=== PATIENT | male | born 1965 | race African-American/Black ===

== ENCOUNTER 2016-12-20 22:41 | Emergency (ER) ==
[2016-12-20] MEDS ORDERED: BENADRYL IV ONE (23:56)
[2016-12-20] MEDS ORDERED: SOLU-MEDROL IV ONE (23:56)
[2016-12-20] MEDS ORDERED: SODIUM CHLORIDE 0.9% INJ ONE (23:56)
[2016-12-20] MEDS ORDERED: PEPCID IV ONE (23:56)
--- NOTE | 2016-12-21 00:05 | PROVIDER DOCUMENTATION ---
HPI-Rash/Wound/ReCheck - General Chief Complaint: Allergic Reaction Stated Complaint: ALLERGIC REACTION Time Seen by Provider: 12/20/16 23:36 Source: patient Allergies/Adverse Reactions: Allergies Allergy/AdvReac Type Severity Reaction Status Date / Time No Known Allergies Allergy Verified 12/20/16 23:58 Home Medications: Home Medication List Medication Instructions Recorded Confirmed Last Taken Type Famotidine [Pepcid] 20 mg PO BID #10 tablet 12/12/16 Unknown Rx LISINOpril [Prinivil] 20 mg PO DAILY 12/12/16 12/12/16 12/12/16 06:30 History Diphenhydramine [Benadryl] 25 mg PO Q4-6H PRN PRN #20 capsule 12/21/16 Unknown Rx Famotidine [Pepcid] 20 mg PO DAILY #20 tablet 12/21/16 Unknown Rx Prednisone [Deltasone] 20 mg PO DIRECTED #12 tablet 12/21/16 Unknown Rx - History of Present Illness-Dermatology Nature of Presenting Problem: 51 y/o AAM c/o rash and itching after getting a CT yesterday to look for a cause of hematuria. [place] states he received the CT yesterday morning, and started itching in the afternoon, with papules developing on the arms, legs and trunk. States they are pruritic. Denies mucosal sores or lesions Denies difficulty breathing, difficulty swallowing Review of Systems - Adult - REVIEW OF SYSTEMS - ADULT Constitutional: reports: no symptoms reported. denies: chills, fever, fatique Eyes: reports: no symptoms reported. denies: decreased vision, blurred vision, double vision, eye pain Ears, Nose, Mouth & Throat: reports: no symptoms reported. denies: ear pain, nose pain, throat pain Cardiovascular: reports: no symptoms reported. denies: chest pain Respiratory: reports: no symptoms reported. denies: cough, shortness of breath Gastrointestinal: reports: no symptoms reported. denies: abdominal pain, diarrhea, nausea, vomiting Genitourinary: reports: no symptoms reported. denies: dysuria, discharge, frequency Musculoskeletal: reports: no symptoms reported Integumentary: reports: no symptoms reported Neurological: reports: no symptoms reported Psychiatric: reports: no symptoms reported Endocrine: reports: no symptoms reported Hematologic/Lymphatic: reports: no symptoms reported Allergic/Immunologic: reports: no symptoms reported All Other Systems: Reviewed and Negative Past History - Adult - PAST MEDICAL HISTORY-ADULT Review of Records: reports: Old Records Reviewed, Nursing Assessment Review, Medications Reviewed, Social history reviewed & non-contributory. Major Childhood Illnesses: reports: denies history Cardiovascular: reports: HTN Respiratory: reports: denies history Gastrointestinal: reports: denies history Genitourinary: reports: denies history Musculoskeletal: reports: denies history Neurological: reports: headaches/migraines Endocrine/Immune: reports: denies history Other Conditions: reports: denies history - PRIOR SURGERIES/PROCEDURES Surgical/Procedure History: reports: reviewed, not pertinent - IMMUNIZATION STATUS Childhood Immunizations: See Nurse Assessment Flu Vaccine: See Nurse Assessment - FAMILY HISTORY Family History: reviewed, not pertinent Physical Exam-General - PHYSICAL EXAM-ADULT Initial Vital Signs Reviewed: Yes - CONSTITUTIONAL General Appearance: appears well, alert, no apparent distress - EYES Eyes: PERRL/EOMI, pink conjunctivae - HEAD, EARS, NOSE, MOUTH & THROAT HENMT: normocephalic/atraumatic, moist mucous membranes, normal ENT inspection, pharynx normal - NECK Neck: non-tender, full range of motion, supple, normal inspection - RESPIRATORY Respiratory: chest non-tender, lungs clear, normal breath sounds, no pleuratic chest pain, no respiratory distress, no accessory muscle use. negative: wheezing - CARDIOVASCULAR Cardiovascular: normal peripheral pulses, regular rate, rhythm - MUSCULOSKELETAL Back Exam: normal inspection Extremity: normal range of motion, non-tender, normal gait - SKIN Integumentary: normal color, normal turgor, warm/dry, rash (papular rash) - NEUROLOGIC Neurologic: grossly normal, no motor/sensory deficits - PSYCHIATRIC Psych/Mental Status: normal mood/affect, normal thought content, normal thought process, oriented x 3 Progress - PLAN OF CARE/RESULTS Progress/Plan/Lab Results: Vital Signs Temp Pulse Resp BP Pulse Ox 12/20/16 22:48 98.1 F 80 18 114/97 100 No Known Allergies Allergy (Verified 12/20/16 23:58) Famotidine [Pepcid] 20 mg PO BID #10 tablet 12/12/16 LISINOpril [Prinivil] 20 mg PO DAILY 12/12/16 Departure - Departure Time of Disposition Order: 00:07 DIAGNOSIS: Rash and nonspecific skin eruption Disposition: HOME 01 Certified Medical Emergency: Emergent Condition: Stable Additional Instructions: ED Follow Up Instructions: You have been treated by a care provider in the Emergency Department. These instructions are being provided to you so you can have an understanding of how to care for yourself upon discharge. Upon discharge from the Emergency Department, you are responsible for making arrangements for follow-up care by a physician of your choice. Take all prescribed medications as directed. Return to the Emergency Department immediately for any new or worsening symptoms. You may call the Physician Referral phone number at [phone] to obtain a list of Physicians who are taking new patients. Prescriptions: Diphenhydramine [Benadryl] 25 mg PO Q4-6H PRN PRN #20 capsule PRN Reason: Itching Prednisone [Deltasone] 20 mg PO DIRECTED #12 tablet Famotidine [Pepcid] 20 mg PO DAILY #20 tablet
[2016-12-21 00:36] VITALS: BP 131/78
== END 2016-12-21 00:39 | disposition home or self-care (01) ==
LOC: ED 22:41
DX: R21 Rash and other nonspecific skin eruption (principal); L29.9 Pruritus, unspecified; I10 Essential (primary) hypertension; R51 Headache; Z79.899 Other long term (current) drug therapy
CPT/HCPCS: J1200; J2930; S0028